=== PATIENT | female | born 1995 | race Caucasian/White ===

== ENCOUNTER 2018-09-09 02:06 | Outpatient (CLI) | payer OTHER, SELFPAY ==
[2018-09-09 12:41] LABS: ALT 37 U/L (12-78); AST 15 U/L (15-37); Albumin 4.3 g/dL (3.4-5.0); Alkaline Phosphatase 64 U/L (46-116); Anion Gap 11.9 mmol/L (3-11); BUN 12 mg/dL (7-18); Bilirubin, Total 0.5 mg/dL (0.2-1.0); CO2 26.1 mmol/L (21.0-32.0); CREATININE 0.62 mg/dL (0.55-1.02); Calcium 9.2 mg/dL (8.5-10.1); Calculated LDL 135; Chloride 102 mmol/L (98-107); Cholesterol 194 mg/dL (50-200); Glucose 85 mg/dL (70-100); HDL Cholesterol 41 mg/dL (40-60); Potassium 4.2 mmol/L (3.5-5.1); Sodium 140 mmol/L (136-145); Total Protein 7.7 g/dL (6.4-8.2); Triglyceride 92 mg/dL (30-150)
== END 2018-09-09 02:26 ==
PROVIDERS: PCP Family Medicine
DX: Z00.00 Encounter for general adult medical examination without abnormal findings (principal); Z13.220 Encounter for screening for lipoid disorders
CPT/HCPCS: 36415; 80053; 80061; 83721

== ENCOUNTER 2020-11-02 12:04 | Outpatient (REF) | payer OTHER, SELFPAY ==
[2020-11-03 10:16] LABS: HIV-1/2 Ag & Ab Screen Negative (Negative)
[2020-11-05 10:40] LABS: Hepatitis A Antibody IgM Negative (Negative); Hepatitis B Core Antibody Negative (Negative); Hepatitis B surface Ag Negative (Negative); Hepatitis C Ab w Rflx HCV PCR Negative (Negative)
[2020-11-05 15:23] LABS: Chlamydia Result Negative (Negative); GC Result Negative (Negative)
== END 2020-11-02 12:05 | disposition home or self-care (01) ==
LOC: LBN 12:04
PROVIDERS: Visit Provider Physician Assistant
DX: Z11.3 Encounter for screening for infections with a predominantly sexual mode of transmission (principal); Z11.59 Encounter for screening for other viral diseases; Z11.4 Encounter for screening for human immunodeficiency virus [HIV]
CPT/HCPCS: 86704; 86709; 86803; 87340; 87389; 87491; 87591; 87480; 87510; 87660